=== PATIENT | male | born 2000 | race Caucasian/White ===

== ENCOUNTER 2023-08-26 14:00 | Emergency (ER) | payer OTHER ==
[~2023-08-26] VITALS: Ht 182.9 cm; Wt 82.3 kg
[2023-08-26] MEDS: NS 1,000 ML IV ONE (17:45)
[2023-08-26 18:01] LABS: BASO % 0.6 % (0.0-1.0); EOS # 0.1 10^3/uL (0.0-0.5); EOS % 0.7 % (0.0-3.0); HEMATOCRIT 44.1 % (42.0-52.0); HEMOGLOBIN 14.7 g/dl (13.5-17.5); LYMPH # 2.6 10^3/uL (1.5-5.0); LYMPH % 36.7 % (24.0-44.0); MEAN CORPUSCULAR HEMOGLOBIN 29.1 pg (27.0-33.0); MEAN CORPUSCULAR HGB CONC 33.3 g/dl (32.0-36.5); MEAN CORPUSCULAR VOLUME 87.3 fl (80.0-96.0); MONO # 0.5 10^3/uL (0.0-0.8); MONO % 7.4 % (2.0-8.0); NEUTROPHILS # 3.9 10^3/uL (1.5-8.5); NEUTROPHILS % 54.5 % (36.0-66.0); PLATELET COUNT, AUTOMATED 252 10^3/uL (150-450); RED BLOOD COUNT 5.05 10^6/uL (4.30-6.10); WHITE BLOOD COUNT 7.2 10^3/uL (4.0-10.0)
[2023-08-26] MEDS ORDERED: ISOVUE-370 76% 100ML VIAL As Ordered ONE (18:12)
[2023-08-26 20:17] VITALS: BP 137/60; TEMP 98.2; O2SAT 98
== END 2023-08-26 20:22 | disposition home or self-care (01) ==
LOC: M ED 14:00
DX: D86.2 Sarcoidosis of lung with sarcoidosis of lymph nodes (principal)
CPT/HCPCS: 36415; 71275; 80047; 85025; 87486; 87581; 87633; 87798; 99284; Q9967

== ENCOUNTER → 2023-09-11 | Outpatient (CLI) | payer OTHER ==
[~2023-09-11] MED LIST: E-Z-GAS II EFFERVESCENT PACKET (SODIUM BICARB./CITRIC ACID/SIMETHICONE) As Ordered ONE; E-Z-HD 98% w/w 340GM SUSP BTL As Ordered ONE; E-Z-PAQUE 96% w/w SUSP 176GM BTL As Ordered ONE
== END ==
LOC: M RAD 08:13
PROVIDERS: ATTEND Physician Assistant
DX: R13.10 Dysphagia, unspecified (principal)

== ENCOUNTER 2023-11-11 08:10 | Day surgery (SDC) | payer OTHER ==
[~2023-11-11] VITALS: Ht 182.9 cm; Wt 78.0 kg
[~2023-11-11 08:10] MED LIST changes: -E-Z-GAS II EFFERVESCENT PACKET (SODIUM BICARB./CITRIC ACID/SIMETHICONE) As Ordered ONE; -E-Z-HD 98% w/w 340GM SUSP BTL As Ordered ONE; -E-Z-PAQUE 96% w/w SUSP 176GM BTL As Ordered ONE; +PANT20TA6 PO
[2023-11-11] MEDS ORDERED: MIDAZOLAM INJ 2MG/2ML VIAL As Ordered ONE (09:01)
[2023-11-11] MEDS ORDERED: fentaNYL 100 MCG/2 ML INJECTION As Ordered ONE (09:02)
[2023-11-11] MEDS ORDERED: ROCURONIUM BROMIDE 50MG/5ML VIAL As Ordered ONE (09:03)
[2023-11-11] MEDS ORDERED: propofoL 200 MG/20 ML VIAL As Ordered ONE (09:03)
[2023-11-11] MEDS ORDERED: LIDOCAINE 2% 100MG/5ML SDV (FOR ANES.) As Ordered ONE (09:04)
[2023-11-11] MEDS: LR 1,000 ML IV SCH (09:06)
[2023-11-11] MEDS: CETACAINE SPRAY 5GM As Ordered ONE (10:06)
[2023-11-11] MEDS ORDERED: SUGAMMADEX SODIUM 500 MG/5 ML VIAL (BRIDION) As Ordered ONE (10:10)
[2023-11-11] MEDS ORDERED: ONDANSETRON 4MG 2ML VIAL As Ordered ONE (10:11)
[2023-11-11] MEDS ORDERED: ONDANSETRON 4MG 2ML VIAL IV PRN (10:45)
[2023-11-11] MEDS ORDERED: fentaNYL 100 MCG/2 ML INJECTION IV PRN (10:45)
[2023-11-11] MEDS: EPINEPHrine 1MG/10ML SYRINGE 1.5IN As Ordered ONE (11:01)
[2023-11-11 11:50] VITALS: BP 118/57; TEMP 98.3; O2SAT 96
== END 2023-11-11 12:25 | disposition home or self-care (01) ==
LOC: M SDC 08:10
PROVIDERS: ATTEND Internal Medicine Critical Care Medicine
DX: R59.0 Localized enlarged lymph nodes (principal); R91.1 Solitary pulmonary nodule; K21.9 Gastro-esophageal reflux disease without esophagitis; Z79.899 Other long term (current) drug therapy
CPT/HCPCS: 31624; 31654; 71045; 87070; 87075; 87102; 87116; 87205; 87206; 88108; 88173; 88305; 88313; J1100; J2250; J2405; J3010

== ENCOUNTER → 2024-01-07 | Outpatient (CLI) | payer OTHER ==
[2024-01-12 14:31] LABS: CRYTPOCOCCUS SOURCE Serum
== END ==
LOC: M LAB 15:32
PROVIDERS: ATTEND Internal Medicine Critical Care Medicine
DX: A31.8 Other mycobacterial infections (principal)

== ENCOUNTER → 2024-03-10 | Outpatient (CLI) | payer OTHER ==
[2024-03-10 13:27] LABS: C REACTIVE PROTEIN QUANTITATIV < 0.40 MG/DL (<1.0)
[2024-03-10 13:28] LABS: ALBUMIN 4.3 G/DL (3.2-5.2); ALKALINE PHOSPHATASE 86 U/L (46-116); ALT/SGPT 30 U/L (7.0-40); AST/SGOT 15 U/L (<34); BASO % 0.4 % (0.0-1.0); BILIRUBIN,TOTAL 0.6 MG/DL (0.3-1.2); BLOOD UREA NITROGEN 13 MG/DL (9-23); CALCIUM LEVEL 10.1 MG/DL (8.5-10.1); CARBON DIOXIDE LEVEL 31 MMOL/L (20-31); CHLORIDE LEVEL 105 MMOL/L (98-107); CREATININE FOR GFR 1.02 MG/DL (0.70-1.30); EOS # 0.1 10^3/uL (0.0-0.5); EOS % 1.8 % (0.0-3.0); GLOMERULAR FILTRATION RATE > 60.0 (>60); GLUCOSE, FASTING 66 MG/DL (60-100); HEMATOCRIT 44.5 % (42.0-52.0); HEMOGLOBIN 14.6 g/dl (13.5-17.5); LYMPH # 1.7 10^3/uL (1.5-5.0); LYMPH % 34.9 % (24.0-44.0); MEAN CORPUSCULAR HEMOGLOBIN 28.4 pg (27.0-33.0); MEAN CORPUSCULAR HGB CONC 32.8 g/dl (32.0-36.5); MEAN CORPUSCULAR VOLUME 86.6 fl (80.0-96.0); MONO # 0.4 10^3/uL (0.0-0.8); MONO % 8.7 % (2.0-8.0); NEUTROPHILS # 2.7 10^3/uL (1.5-8.5); NEUTROPHILS % 54.2 % (36.0-66.0); PLATELET COUNT, AUTOMATED 250 10^3/uL (150-450); POTASSIUM SERUM 4.2 MMOL/L (3.5-5.1); RED BLOOD COUNT 5.14 10^6/uL (4.30-6.10); SODIUM LEVEL 142 MMOL/L (136-145); TOTAL PROTEIN 7.5 G/DL (5.7-8.2)
[2024-03-10 13:34] LABS: ERYTHROCYTE SEDIMENTATION RATE 10 mm/hr (0-15)
[2024-03-10 13:36] LABS: HEPATITIS B SURFACE ANTIBODY POSITIVE (POSITIVE)
[2024-03-10 13:48] LABS: HEPATITIS B SURFACE ANTIGEN NEGATIVE (NEGATIVE)
[2024-03-10 14:01] LABS: HIV 1&2 SCREEN NEGATIVE (NEGATIVE)
[2024-03-10 14:09] LABS: HEPATITIS C VIRUS ABY INDEX 0.04 INDEX (<0.8)
[2024-03-12 10:57] LABS: HEPATITIS B CORE ANTIBODY IGG NON-REACTIVE (NON-REACTIVE)
[2024-03-14 13:02] LABS: QuantiFERON-TB Gold Plus NEGATIVE (NEGATIVE)
[2024-03-14 15:52] LABS: ANGIOTENSIN 1 CONVERTING ENZYM 28 U/L (9-67)
== END ==
LOC: M PLALAB 09:51
PROVIDERS: ATTEND Internal Medicine Infectious Disease
DX: R59.0 Localized enlarged lymph nodes (principal)

== ENCOUNTER → 2024-03-17 | Outpatient (CLI) | payer OTHER ==
[2024-03-18 15:32] LABS: ANGIOTENSIN 1 CONVERTING ENZYM 30 U/L (9-67)
[2024-03-19 11:48] LABS: HEPATITIS B CORE ANTIBODY IGG NON-REACTIVE (NON-REACTIVE)
[2024-03-21 14:41] LABS: QuantiFERON-TB Gold Plus NEGATIVE (NEGATIVE)
== END ==
LOC: M PLALAB 07:23
PROVIDERS: ATTEND Internal Medicine Infectious Disease
DX: R59.0 Localized enlarged lymph nodes (principal)

== ENCOUNTER → 2024-03-30 | Outpatient (CLI) | payer OTHER | LOC: M RAD 13:39 | PROVIDERS: ATTEND Internal Medicine Infectious Disease | DX: R59.0 Localized enlarged lymph nodes (principal); K22.5 Diverticulum of esophagus, acquired; Z86.19 Personal history of other infectious and parasitic diseases ==